=== PATIENT | female | born 1935 | race Caucasian/White ===

== ENCOUNTER → 2016-11-24 17:26 | Outpatient (CLI) | payer MEDICARE, BC ==
[2014-08-17 08:24] VITALS: BMI 22.3
[~2016-11-24 17:26] MED LIST: [UNRECOGNIZED DRUG - OTHER]
== END | disposition home or self-care (01) ==
LOC: D.MAMMO 15:30
DX: Z12.31 Encounter for screening mammogram for malignant neoplasm of breast (principal)